=== PATIENT | male | born 1995 | race Caucasian/White ===

== ENCOUNTER → 2017-04-20 13:09 | Emergency (ER) | payer BC ==
--- NOTE | 2017-04-20 15:06 | UC ---
Throat Pain/Nasal Guerrero HPI - HPI Summary HPI Summary: 22 female presents to with complaints of sore throat, fatigue, body aches that has been ongoing for the past couple of days. States he feels as though his symptoms worsened upon waking up this morning, his throat was extremely sore with swallowing. Denies known sick contacts. Denies known fever. Admits to nausea. No vomiting or abdominal pain. Denies cough and difficulty breathing. No medication. No PMHx. No other complaints. - History of Current Complaint Chief Complaint: UCRespiratory Stated Complaint: SORE THROAT Time Seen by Provider: 04/20/17 14:20 Hx Obtained From: Patient Onset/Duration: Sudden Onset, Lasting Days, Still Present, Worse Since Severity: Moderate Pain Intensity: 8 Pain Scale Used: 0-10 Numeric Cough: None Associated Signs & Symptoms: Positive: Dysphagia - Epiglottits Risk Factors Epiglottis Risk Factors: Negative - Allergies/Home Medications Allergies/Adverse Reactions: Allergies Allergy/AdvReac Type Severity Reaction Status Date / Time No Known Allergies Allergy Verified 04/20/17 14:11 Home Medications: Home Medications Cqxrhvk-Piodwglyveolu-Gemkrbdz [Excedrin Migraine] 2 tab PO PRN 04/20/17 [ History] PMH/Surg Hx/FS Hx/Imm Hx - Additional Past Medical History Additional PMH: Denies DM, Asthma and HTN - Surgical History Surgical History: None - Family History Known Family History: Positive: None - Social History Alcohol Use: Occasionally Substance Use Type: None Smoking Status (MU): Light Every Day Tobacco Smoker Amount Used/How Often: 3 CIGS PER DAY Have You Smoked in the Last Year: Yes Review of Systems Constitutional: Fatigue ENT: Sore Throat Respiratory: Negative Cardiovascular: Negative Gastrointestinal: Nausea Musculoskeletal: Myalgia Neurological: Headache All Other Systems Reviewed And Are Negative: Yes Physical Exam Triage Information Reviewed: Yes Appearance: Well-Appearing, No Pain Distress, Well-Nourished Vital Signs: Initial Vital Signs Temp 99.9 F 04/20/17 14:11 Pulse 91 04/20/17 14:11 Resp 18 04/20/17 14:11 BP 133/77 04/20/17 14:11 Pulse Ox 99 04/20/17 14:11 Vital Signs Reviewed: Yes Eyes: Positive: Conjunctiva Clear ENT: Positive: Hearing grossly normal, Pharyngeal erythema, TMs normal, Tonsillar swelling, Tonsillar exudate, Uvula midline, Other - no sgn of peritonsillar abscess, airway patent. Negative: Nasal congestion, Nasal drainage, Trismus, Muffled voice, Hoarse voice Dental: Positive: Cervical Lymphadenopathy. Negative: Percussion Tenderness @ Neck: Positive: Supple, Nontender Respiratory: Positive: Chest non-tender, Lungs clear, Normal breath sounds, No respiratory distress, No accessory muscle use. Negative: Rhonchi, Stridor, Wheezing Cardiovascular: Positive: RRR, No Murmur, Pulses Normal, Brisk Capillary Refill Abdomen Description: Positive: Nontender, No Organomegaly, Soft. Negative: Splenomegaly - exam limited due to excess adipose Bowel Sounds: Positive: Present Musculoskeletal: Positive: Strength Intact Neurological: Positive: Alert Skin Exam: Normal Throat Pain/Nasal Course/Dx - Course Course Of Treatment: rapid strep obtained and negative. monospot obtained and pending results. due to PE findings will give antibiotic script to take if symptoms worsen or do not improve within 1-2 days and if monospot is negative. patient educated and aware. no other complaints. no other concerns of other etiology at this time. ibuprofen, chloraspetic spray, gargle salt water. refrain from physical activity, increase fluids, rest. aware of worsening signs and symptoms to watch out for. refrain from sharing drinks and kissing - Differential Dx/Diagnosis Differential Diagnosis/HQI/PQRI: Mononucleosis, Pharyngitis Provider Diagnoses: Pharyngitis Discharge - Discharge Plan Condition: Stable Disposition: HOME Prescriptions: Amoxicillin PO (*) [Amoxicillin 500 MG CAP*] 500 mg PO Q12H #20 cap Patient Education Materials: Pharyngitis (ED) Forms: *Work Release Referrals: JAROD Comer [Primary Care Provider] - Additional Instructions: You will hear about mono results tomorrow if positive. Continue treatment of ibuprofen, increase fluid intake and get plenty of rest. Chloraseptic spray sold over the counter to help with sore throat. Hot showers. Refrain from sharing drinks and kissing and from physical activity. If symptoms do not improve or worsen over the next couple of days, as discussed please take prescribed antibiotic as directed, and if mono result is negative. Gargle with salt water and keep good oral hygiene. Follow up with PCP. Worsening or new symptoms please seek medical attention promptly.
[2017-04-20 19:48] LABS: EBV Response NO
[2017-04-20 19:59] LABS: Manual Entry Verification MER0007; Mono Internal Control QC Line Present
== END | disposition home or self-care (01) ==
LOC: UCCORT 13:09
DX: J02.9 Acute pharyngitis, unspecified (principal); R53.83 Other fatigue; F17.210 Nicotine dependence, cigarettes, uncomplicated
CPT/HCPCS: 36415; 86308; 87651; 99202; G0463